=== PATIENT | male | born 1985 | race American Indian/Alaskan Native ===

== ENCOUNTER 2019-08-08 19:30 | Emergency (ER) | payer MEDICAID ==
[~2019-08-08] VITALS: Ht 167.6 cm; Wt 86.0 kg
[2019-08-08 19:47] LABS: BASOPHILS # (AUTO) 0.1 X10'3 (0-0.2); BASOPHILS % (AUTO) 1.2 % (0-1); EOSINOPHILS # (AUTO) 0.2 X10'3 (0-0.9); EOSINOPHILS % (AUTO) 2.5 % (0-6); HEMATOCRIT 44.2 % (42.0-52.0); HEMOGLOBIN 15.1 g/dl (14.0-17.9); LYMPHOCYTES # (AUTO) 2.9 X10'3 (1.1-4.8); MEAN CORPUSCULAR HEMOGLOBIN 29.4 PG (27.0-31.0); MEAN CORPUSCULAR HGB CONC 34.2 g/dL (33.0-36.5); MEAN CORPUSCULAR VOLUME 85.9 FL (78-98); MONOCYTES # (AUTO) 0.9 X10'3 (0-0.9); MONOCYTES % (AUTO) 8.9 % (2-12); NEUTROPHILS # (AUTO) 5.6 X10'3 (1.8-7.7); NEUTROPHILS % (AUTO) 57.4 % (42-75); PLATELET COUNT 323 X10'3 (140-440); RED BLOOD COUNT 5.14 X10'6 (4.70-6.10); RED CELL DISTRIBUTION WIDTH 13.2 % (11.5-14.5); WHITE BLOOD COUNT 9.7 X10'3 (4.5-11.0)
[2019-08-08] MEDS ORDERED: LORazepam 2 mg/ml vial IV ONE (19:50)
[2019-08-08] MEDS ORDERED: normal saline 1000ML IV soln IVB ONE (19:50)
[2019-08-08 19:55] VITALS: BP 161/85
[2019-08-08 20:05] LABS: PARTIAL THROMBOPLASTIN TIME 26 SECONDS (22-32)
[2019-08-08 20:07] LABS: ALANINE AMINOTRANSFERASE 27 U/L (12-78); ALBUMIN 4.4 G/DL (3.4-5.0); ALBUMIN/GLOBULIN RATIO 1.2 (1.1-1.5); ALKALINE PHOSPHATASE 75 IU/L (46-116); ANION GAP 10 (8-16); ASPARTATE AMINO TRANSFERASE 19 U/L (10-37); BILIRUBIN,TOTAL 0.2 MG/DL (0.1-1.0); BLOOD UREA NITROGEN 22 MG/DL (7-18); BUN/CREATININE RATIO 18.8 (5.4-32.0); CHLORIDE 103 MMOL/L (99-107); CREATININE 1.17 MG/DL (0.60-1.10); GLUCOSE 109 MG/DL (70-104); POTASSIUM 3.1 MMOL/L (3.5-5.1); SODIUM 141 MMOL/L (135-145); TOTAL CARBON DIOXIDE 27.7 MMOL/L (24-32); TOTAL PROTEIN 8.1 G/DL (6.4-8.2); eGFR 71 ML/MIN
== END 2019-08-08 21:29 | disposition home or self-care (01) ==
LOC: ER 19:31
DX: F41.0 Panic disorder [episodic paroxysmal anxiety] (principal); F15.10 Other stimulant abuse, uncomplicated; F17.200 Nicotine dependence, unspecified, uncomplicated; Z72.89 Other problems related to lifestyle; Z88.0 Allergy status to penicillin
CPT/HCPCS: 36415; 71045; 80053; 84484; 85025; 85610; 85730; 93005; 96374; 99285; J2060; J7030

== ENCOUNTER 2021-02-04 23:09 | Emergency (ER) | payer MEDICAID | END 2021-02-05 02:08 | disposition left against medical advice (07) | LOC: ER 23:09 | DX: Z01.84 Encounter for antibody response examination (principal); Z53.21 Procedure and treatment not carried out due to patient leaving prior to being seen by health care provider ==

== ENCOUNTER 2024-12-13 09:29 | Emergency (ER) | payer MEDICAID ==
[~2024-12-13] VITALS: Ht 167.6 cm; Wt 96.1 kg
--- NOTE | 2024-12-13 09:39 | Physician Documentation ---
History of Present Illness ~ Chief Complaint: Chest Pain Stated Complaint: CP Time Seen by MD: 09:48 Primary Medical Doctor: BRONSNO DIMAS Patient comes in for evaluation of chest pain. He reports this is a new symptom for him, he awoke feeling fine this morning but about 6:30 a.m. while eating breakfast he began to have pain which he had located in a well localized spot over the left pectoral area, which he reported as a stabbing pain that comes and goes. Currently that pain is gone and the patient has pain in the same spot on the right chest, radiating up into his neck. At the moment the patient is pain- free. He denies any nausea, vomiting, diaphoresis, or recent cough. He denies any recent activity changes, although he does gardening every day. Patient has a history of drug use and of what sounds like congestive heart failure with probable cardiomyopathy; the workup was done about five years ago and the patient does not recall his EF. Tetanus within 5 Years?: No Allergies: Coded Allergies: Penicillins (Verified Allergy, Unknown, 08/08/19) Active Prescriptions See Medication Reconciliation Form. Medication Reconciliation Scheduled Furosemide (Furosemide), 1 TAB PO DAILY, (Reported) Pantoprazole Sodium (PROTONIX tablet), 1 TAB PO DAILY Potassium Chloride (K-Dur), 1 TAB PO DAILY, (Reported) Past Medical History Past Medical History: Congestive Heart Failure (Cardiomyopathy), Hypertension (Borderline according to patient. 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 Head: Normocephalic and atraumatic. Eyes: Conjunctiva normal. ENT: Mucous membranes moist. Neck: Supple. Chest: Clear to auscultation bilaterally, without rales, rhonchi, or wheezes. There is no accessory muscle use or retractions. Cardiac: Regular rate and rhythm without murmurs, gallops or rubs. Palpation of the chest wall is normal. Abd: Soft, nondistended, tender in the epigastrium and just to the right, with normoactive bowel sounds. No guarding or rebound. Extremities: Within normal limits without cyanosis, clubbing, or edema. Skin: [place], warm and dry with no significant rash appreciated. Neuro: Cranial nerves II-XII grossly intact. The gait is normal. General Appearance: alert Progress Results/Orders Results/Orders Orders - TAYA ACEVEDO MD Monitor (12/13/24 09:50) Saline Lock (12/13/24 09:50) Completed Orders - TAYA ACEVEDO MD Cbc/Diff (12/13/24 09:50) Lipase (12/13/24 09:50) MG (12/13/24 09:50) Normal Saline 1000ml (Sodium Chloride 10 (12/13/24 09:50) Nothing By Mouth (12/13/24 Lunch) BMP (12/13/24 09:50) Hs Troponin I W Calculations (12/13/24 09:50) Hs Troponin I W Calculations (12/13/24 11:50) Hs Troponin I W Calculations (12/13/24 12:50) Aspirin 81mg Chew Tablet (Aspirin 81mg C (12/13/24 09:50) Pantoprazole 40mg Iv (Protonix 40mg Iv) (12/13/24 09:50) D-Dimer (12/13/24 10:54) Medications Received in ER Medications (Trade) Dose Ordered Sig/Ronnie Route PRN Reason Start Time Stop Time Status Last Admin Dose Admin (sodium chloride 1000ml IV soln) 250 ml ONCE ONCE IVB 12/13/24 09:50 12/13/24 09:52 DC 12/13/24 10:08 250 ML (Protonix 40mg IV) 40 mg ONCE ONCE IV 12/13/24 09:50 12/13/24 09:54 DC 12/13/24 10:08 40 MG Vital Signs 12/13/24 12/13/24 12/13/24 12/13/24 09:34 09:50 10:00 10:30 Temp 97.1 Pulse 98 88 86 Resp 18 12 10 B/P (MAP) 152/ 150/119 (129) 118/77 (91) Pulse Ox 98 98 98 98 O2 Delivery Room Air* O2 Flow Rate 0 0 0 FiO2 21 12/13/24 12/13/24 12/13/24 12/13/24 11:00 11:30 11:43 13:37 Temp 98.3 Pulse 83 80 79 Resp 8 9 19 B/P (MAP) 124/72 (89) 125/77 (93) 132/81 Pulse Ox 100 100 96 O2 Flow Rate 0 0 Laboratory Tests Test 12/13/24 10:02 12/13/24 11:46 12/13/24 12:48 White Blood Count 5.9 Red Blood Count 4.64 L Hemoglobin 12.1 L Hematocrit 37.0 L Mean Corpuscular Volume 79.7 Mean Corpuscular Hemoglobin 26.1 L Mean Corpuscular Hemoglobin Concent 32.7 L Red Cell Distribution Width 14.7 H Platelet Count 326 Mean Platelet Volume 8.2 Neutrophils (%) (Auto) 48.2 Lymphocytes (%) (Auto) 36.2 Monocytes (%) (Auto) 9.9 Eosinophils (%) (Auto) 4.7 Basophils (%) (Auto) 1.0 Neutrophils # (Auto) 2.9 Lymphocytes # (Auto) 2.2 Monocytes # (Auto) 0.6 Eosinophils # (Auto) 0.3 Basophils # (Auto) 0.1 CBC Comment D-Dimer 0.32 D-Dimer Comment Sodium Level 136 Potassium Level 4.0 Chloride Level 100 Carbon Dioxide Level 28.5 Anion Gap 8 Blood Urea Nitrogen 27 H Creatinine 0.94 Estimated GFR/1.73 m2 88 BUN/Creatinine Ratio 28.7 H Glucose Level 133 H Calcium Level 8.5 Magnesium Level 2.3 Troponin I High Sensitivity < 4 L 4 < 4 L Troponin I High Sens Percent Delta Troponin I Hi Sens Absolute Change Albumin 3.4 Lipase 18 Chemistry Comments EKG/XRAY/CT/US/VASC/MRI EKG : Intepreting Monitor?: No Indication: chest pain EKG Rate: 107 EKG: sinus tach, LBBB, abnormal Q waves, prolonged QT EKG Blocks: none Medical Decision Making Additional Comment With migratory chest pain, reports symptoms worsened after eating, and has some degree of epigastric discomfort. There is no tachypnea, tachycardia, hypoxia to suggest acute pulmonary embolism, and indeed the D-dimer is within normal limits. There is no evidence for acute cardiac ischemia. There may be an element of GI component to this pain, and patient will be discharged on a Protonix prescription, with instructions to follow up with PMD for continuing outpatient workup. He understands to return to the emergency department for any worsening of his condition or any other concerns. Departure Time of Disposition: 13:16 Disposition: 01 HOME / SELF CARE / HOMELESS Impression: Primary Impression: Chest pain Condition: Stable Discharge Instructions: Nonspecific Chest Pain, Adult Additional Instructions: Please take the new medications prescribed , avoid alcohol and tobacco, and follow-up closely with your regular primary care for recheck, and for further outpatient workup and evaluation. Return to the emergency department for any worsening of your condition or any other concerns. Referrals: NO PRIMARY CARE PROVIDER (PCP) Prescriptions Pantoprazole Sodium (PROTONIX tablet) 40 Mg Tablet.dr 1 TAB PO DAILY for 30 Days, #30 TAB 0 Refills Prov: TAYA ACEVEDO MD 12/13/24 Education Educated: Patient, Family Educated regarding: diagnosis, treatment Signature Scribe Signature: Attestation: MARILY VALERIO NP Dec 13, 2024 09:39 TAYA ACEVEDO MD Dec 13, 2024 09:50
--- NOTE | 2024-12-13 09:50 | ELECTROCARDIOGRAPH REPORT ---
[facility] Test Date: 2024-12-13 Test Time: 09:49:21 Pat Name: SANTOS CAO Department: [facility]- Patient ID: 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 Reading MD: Measurements Intervals [place] Rate: 107 P: 0 [place]: 0 QRS: 0 QRSD: 94 T: 41 QT: 355 QTc: 474 Interpretive Statements Atrial fibrillation Abnormal R-wave progression, early transition Please click the below link to view image of tracing.
[2024-12-13] MEDS: normal saline 1000ML IV soln IVB ONE (10:08)
--- NOTE | 2024-12-13 10:08 | RADIOLOGY REPORT ---
DI CHEST,SINGLE VIEW, HISTORY: cp COMPARISON: None None TECHNICAL DATA: 1 view of the chest was obtained. FINDINGS: Lines and tubes: None Cardiomediastinal silhouette: normal Pulmonary vasculature: normal Lung expansion: normal Lung airspace: Left basilar subsegmental atelectasis is seen. Lung interstitium: normal Pleura: normal Pneumothorax: no Bones: Unremarkable Other: no IMPRESSION: Left basilar subsegmental atelectasis is seen.
[2024-12-13 10:18] LABS: MEAN PLATELET VOLUME 8.2 FL (7.4-10.4); RED CELL DISTRIBUTION WIDTH 14.7 % (11.5-14.5)
[2024-12-13 10:23] LABS: CREATININE 0.94 MG/DL (0.60-1.10); TOTAL CARBON DIOXIDE 28.5 MMOL/L (24-32); eCRCL 93 ML/MIN; eGFR 88 ML/MIN
[2024-12-13] MEDS ORDERED: FURO20TA4 PO (11:43)
[2024-12-13] MEDS ORDERED: POTA-206 PO (11:43)
[2024-12-13] MEDS ORDERED: PANT-47 PO (13:17)
[2024-12-13 13:37] VITALS: BP 132/81; PULSE 79; RESP 19; TEMP 98.3; O2SAT 96
== END 2024-12-13 13:45 | disposition home or self-care (01) ==
LOC: ER 09:30
DX: R07.9 Chest pain, unspecified (principal); M54.2 Cervicalgia; I11.0 Hypertensive heart disease with heart failure; I50.9 Heart failure, unspecified; F15.90 Other stimulant use, unspecified, uncomplicated; F17.200 Nicotine dependence, unspecified, uncomplicated; Z88.0 Allergy status to penicillin
CPT/HCPCS: 36415; 71045; 80048; 83690; 83735; 84484; 85025; 85379; 93005; 96365; 99285; J2470; J7030